=== PATIENT | female | born 1945 | race African-American/Black ===

== ENCOUNTER 2020-01-09 08:46 | Day surgery (SDC) | payer MEDICARE ==
[2020-01-09 09:38] LABS: ABSOLUTE BASOPHILS # (AUTO) 0.1 10^3/uL (0.0-0.2); ABSOLUTE EOSINOPHILS # (AUTO) 0.3 10^3/uL (0.0-0.6); ABSOLUTE LYMPHOCYTES (AUTO) 1.2 10^3/uL (0.5-4.7); ABSOLUTE MONOCYTES (AUTO) 0.4 10^3/uL (0.1-1.4); ABSOLUTE NEUT (AUTO) 4.9 10^3/uL (1.7-8.2); BASOPHILS % (AUTO) 0.9 % (0-2); EOSINOPHILS % (AUTO) 4.1 % (0-6); HEMATOCRIT 34.1 % (36.0-47.0); HEMOGLOBIN 11.7 g/dL (12.0-15.5); LYMPHOCYTES % (AUTO) 17.9 % (13-45); MEAN CORPUSCULAR HEMOGLOBIN 32.7 pg (27.0-33.4); MEAN CORPUSCULAR HGB CONC 34.3 g/dL (32.0-36.0); MEAN CORPUSCULAR VOLUME 95 fl (80-97); MONOCYTES % (AUTO) 6.3 % (3-13); PLATELET COUNT 161 10^3/uL (150-450); RED BLOOD COUNT 3.57 10^6/uL (3.72-5.28); SEGMENTED NEUTROPHILS % (AUTO) 70.8 % (42-78); TOTAL CELLS COUNTED % (AUTO) 100 %; WHITE BLOOD COUNT 6.9 10^3/uL (4.0-10.5)
[2020-01-09] MEDS ORDERED: MIDAZOLAM 2 MG/2 ML INJ ONE (09:54)
[2020-01-09] MEDS ORDERED: BACITRACIN INJ 50,000 UNIT VIAL ONE (09:55)
[2020-01-09] MEDS ORDERED: FENTANYL CITRATE INJ/PF 100 MCG/2 ML AMPUL ONE (09:55)
[2020-01-09] MEDS ORDERED: CEFAZOLIN INJ 1 GM VIAL ONE (09:55)
[2020-01-09] MEDS ORDERED: LIDOCAINE 0.5% INJ-PF (5 MG/ML) 50 ML SDV ONE ×2 (10:20→11:13)
[2020-01-09 10:22] LABS: ANION GAP 10 (5-19); BLOOD UREA NITROGEN 58 mg/dL (7-20); CALCIUM 9.5 mg/dL (8.4-10.2); CARBON DIOXIDE 25 mmol/L (22-30); CHLORIDE 107 mmol/L (98-107); GLUCOSE 129 mg/dL (75-110); POTASSIUM 4.7 mmol/L (3.6-5.0)
--- NOTE | 2020-01-09 11:51 | Discharge Summary ---
Discharge Summary (SDC) - Discharge Final Diagnosis: 1. Malfunctioning PermCath catheter. 2. End-stage renal disease on hemodialysis. 3. Diabetes mellitus type 2. 4. Hypertension. Date of Surgery: 01/09/20 Discharge Date: 01/09/20 Condition: Good Treatment or Instructions: Discharge home [after recovery per ASU criteria]. Diet , [renal], diabetic, as tolerated, when fully awake advance as tolerated. Activities within moderation encouraged. Follow up in my office by appointment in about [2 weeks. Call for appointment. Leave wounds [covered], [keep clean and dry, until on hemodialysis protocol. Meds per med rec. May shower [in 48 hrs], [try to keep operated area as dry as possible]. Referrals: CHERYL ACOSTA MD [Primary Care Provider] - Discharge Diet: Other (Comments) - Renal, diabetic. Respiratory Treatments at Home: Deep Breathing/Coughing Discharge Activity: Activity As Tolerated Report the Following to Your Physician Immediately: Shortness of Breath
--- NOTE | 2020-01-09 12:09 | RADIOLOGY REPORT (SQ) ---
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 FLUOROSCOPY TIME: 1.3 minutes. 49 images saved to PACS. TECHNIQUE: Intra-operative images acquired during surgical procedure to evaluate progress. NUMBER OF IMAGES: 49 images. LIMITATIONS: None. FINDINGS: Images of the chest acquired during the procedure. IMPRESSION: IMAGE(S) OBTAINED DURING PROCEDURE. COMMENT: Quality ID 145: Final reports for procedures using fluoroscopy that document radiation exp osure indices, or exposure time and number of fluorographic images (if radiation exposure indices are not available) Please consult full operative report of the attending physician for description of the procedure. TECHNICAL DOCUMENTATION: JOB ID: [id number] 2010 [employer]- All Rights Reserved Reading location - IP/workstation name: [email or web address]
--- NOTE | 2020-01-09 12:09 | RADIOLOGY REPORT (SQ) ---
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 FLUOROSCOPY TIME: 1.3 minutes. 49 images saved to PACS. TECHNIQUE: Intra-operative images acquired during surgical procedure to evaluate progress. NUMBER OF IMAGES: 49 images. LIMITATIONS: None. FINDINGS: Images of the chest acquired during the procedure. IMPRESSION: IMAGE(S) OBTAINED DURING PROCEDURE. COMMENT: Quality ID 145: Final reports for procedures using fluoroscopy that document radiation exp osure indices, or exposure time and number of fluorographic images (if radiation exposure indices are not available) Please consult full operative report of the attending physician for description of the procedure. TECHNICAL DOCUMENTATION: JOB ID: [id number] 2010 [employer]- All Rights Reserved Reading location - IP/workstation name: [email or web address]
--- NOTE | 2020-01-09 12:09 | RADIOLOGY REPORT (SQ) ---
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 FLUOROSCOPY TIME: 1.3 minutes. 49 images saved to PACS. TECHNIQUE: Intra-operative images acquired during surgical procedure to evaluate progress. NUMBER OF IMAGES: 49 images. LIMITATIONS: None. FINDINGS: Images of the chest acquired during the procedure. IMPRESSION: IMAGE(S) OBTAINED DURING PROCEDURE. COMMENT: Quality ID 145: Final reports for procedures using fluoroscopy that document radiation exp osure indices, or exposure time and number of fluorographic images (if radiation exposure indices are not available) Please consult full operative report of the attending physician for description of the procedure. TECHNICAL DOCUMENTATION: JOB ID: [id number] 2010 [employer]- All Rights Reserved Reading location - IP/workstation name: [email or web address]
--- NOTE | 2020-01-09 12:09 | RADIOLOGY REPORT (SQ) ---
EXAM DESCRIPTION: TUNNELED CENTRAL LINE; REMOVAL CENTRAL TUNNELED LINE; GUIDANCE FLUOROSCOPIC; ANGIO PLASTY BRACHIOCEPHALIC COMPLETED DATE/TIME: 01/09/2020 11:36 am REASON FOR STUDY: Z45.2 APERMCATH EXCHANGE; Z45.2 PERMCATH EXCHANGE; FIBREAN SHEATH, ATTN TO PERM CA TH, PERM CATH EXCHANGE Z45.2 ENCOUNTER FOR ADJUSTMENT AND MANAGEMENT OF VAD Z79.899 OTHER TUNNELLER (CURRENT) DRUG THERAPY COMPARISON: None. FLUOROSCOPY TIME: 1.3 minutes. 49 images saved to PACS. TECHNIQUE: Intra-operative images acquired during surgical procedure to evaluate progress. NUMBER OF IMAGES: 49 images. LIMITATIONS: None. FINDINGS: Images of the chest acquired during the procedure. IMPRESSION: IMAGE(S) OBTAINED DURING PROCEDURE. COMMENT: Quality ID 145: Final reports for procedures using fluoroscopy that document radiation exp osure indices, or exposure time and number of fluorographic images (if radiation exposure indices are not available) Please consult full operative report of the attending physician for description of the procedure. TECHNICAL DOCUMENTATION: JOB ID: [id number] 2010 [employer]- All Rights Reserved Reading location - IP/workstation name: [email or web address]
[2020-01-09 13:21] VITALS: BP 162/62
--- NOTE | 2020-01-09 13:53 | Operative Report ---
Operative Report DATE OF SURGERY: 01/09/20 PREOPERATIVE DIAGNOSIS: 1. Malfunctioning PermCath catheter. 2. End-stage re nal disease on hemodialysis. 3. Diabetes mellitus type 2. 4. Hypertension. POSTOPERATIVE DIAGNOSIS: 1. Malfunctioning PermCath catheter. 2. End-stage renal disease on hemodialysis. 3. Diabetes mellitus type 2. 4. Central vein fibrin sheath. 4. Hypertension. OPERATION: 1. Superior vena cava angiogram. 2. Angioplasty in superior vena cava. 3. Insertion of new PermCath catheter of the site of old PermCath catheter access in the right internal jugular vein. 4. Angiogram and interpretation. 5. Removal of old PermCath catheter. SURGEON: SACHA ORDONEZ CLEAN ROOM TECHNICIAN: None. ANESTHESIA: Moderate Sedation TISSUE REMOVED OR ALTERED: Not applicable. COMPLICATIONS: None. ESTIMATED BLOOD LOSS: 5 mL. INTRAOPERATIVE FINDINGS: Also will follow up with permacatheter based on the right internal jugular vein. Superior vena cava angiogram demonstrated a well- defined fibrin sheath. This seems to be the cause of the malfunction of the catheter. This was substantiated by the inability to withdraw through the sheath in the superior vena cava. After angioplasty of the fibrin sheath there was easy withdrawal of blood through the angiography sheath. Satisfactory position of the new permacatheter with the tip well down in the right atrial pool. The right atrial atrium is somewhat on the small size in this patient. Easy egress of blood and ingress of heparinized solution. Postprocedure chest x-ray shows hardware in good position. PROCEDURE: After obtaining informed consent, the patient was taken to the [Neurological Surgery Teacher] and p ositioned supine. The [right neck] and chest were prepared with chlorhexidine and draped out with sterile linen. After the " universal timeout", in which it was verified that the patient continued to receive antibiotic, the procedure commenced. Access into the [right internal jugular] vein was obtained by inserting local anesthesia in the old scar, opening with a scalpel. Dissection proceeded using a hemostat dissected of the catheter which was transected and the proximal portion replaced with guide wire. This was followed by introduction of a 0.035 guidewire the tip of which was placed down into the inferior vena cava . A 6 Croatian introducer was placed over the guidewire, the internal portion removed, aspiration attempted. An angiogram was not done with the findings as dictated. Based on this an 8 cm long 8 mm wide high-pressure angioplasty balloon was now placed over the guidewire and inflated for 30 seconds. A completion angiogram showed complete dissipation of the fibrin sheath in the superior vena cava. A 23 cm long permacatheter was now positioned over the chest and an exit site marked and locally anesthetized ,the catheter was placed between the 2 incisions. Proximally, the catheter was now positioned using a peel-away sheath, after dilation. Easy ingress of heparinized solution and egress of blood obtained through both ports. A completion angiogram was done by injecting contrast. The findings were as dictated. The neck incision was now closed using interrupted 3-0 PDS to the subcutaneous tissues, the catheter was anchored at the exit site using 3-0 PDS. A Biopatch device was now placed adjacent to the catheter. Dressings were applied and the procedure concluded. Local anesthesia was now infiltrated in the exit site and around the cuff of the old catheter. These were bluntly dissected away using a hemostat dressings applied and the procedure concluded. Exposure time: [1.3 minutes]. Exposure: 15.76 Meaghan vazquez. Contrast amount: [15 mL] of [id number] low osmolality. Copies of the dictated operative report for Dr. Sacha Hayes MD.concluded. Copies of the dictated operative report for Dr. Sacha Hayes MD.
--- NOTE | 2020-01-09 14:28 | PDOC H&P ---
General Chief Complaint: The patient is referred across for permacatheter exchange. Her existing (PermCath in place since August 2019 working well until this last weekend when the alarms on the machine went off. - Diagnosis (1) Malfunction of peripheral inserted central catheter Is this a Current Diagnosis?: Yes (2) Diabetes mellitus type 2 in nonobese Is this a Current Diagnosis?: Yes (3) End stage renal disease Is this a Current Diagnosis?: Yes (4) Hypertension Is this a Current Diagnosis?: Yes - Current Medications/Allergies Home Medications: Aspirin [Aspirin 81 mg Chewable Tablet] 81 mg PO DAILY 08/15/19 Diltiazem HCl [Diltiazem 24Hr ER (Cd)] 240 mg PO DAILY 08/15/19 Losartan/Hydrochlorothiazide [Hyzaar 100-25 Tablet] 1 each PO DAILY 08/15/19 Pravastatin Sodium [Pravachol] 40 mg PO DAILY 08/15/19 Allergies/Adverse Reactions: No Known Allergies Allergy (Unverified 08/14/19 18:50) Past Medical History Cardiac Medical History: Reports: Hypertension - meds Denies: Coronary Artery Disease, Myocardial Infarction Pulmonary Medical History: Denies: Asthma, Bronchitis, Chronic Obstructive Pulmonary Disease (COPD), Pneumonia Neurological Medical History: Denies: Seizures Endocrine Medical History: Reports: Diabetes Mellitus Type 1 Musculoskeltal Medical History: Reports: Arthritis - generalized Hematology: Reports: Anemia - hx of Past Surgical History Past Surgical History: Reports: Tubal Ligation Family History Family History: CVA, Hypertension Parental Family History Reviewed: No Children Family History Reviewed: No Sibling(s) Family History Reviewed.: No Social History Smoking Status: Never Smoker Frequency of Alcohol Use: None Drugs: None Physical Exam Vital Signs: Temp Pulse Resp BP Pulse Ox 97.2 F 74 18 162/62 H 98 01/09/20 12:50 01/09/20 12:50 01/09/20 12:50 01/09/20 12:50 01/09/20 12:50 Intake & Output 01/08/20 01/09/20 01/10/20 06:59 06:59 06:59 Weight 68.946 kg Additional comments: Constitutional: Well-developed well-nourished -[place] lady. No apparent acute distress. Eyes: Mucous membranes pink and moist, pupils equal and reactive to light. Conjunctiva normal. Cornea normal. ENT: Hearing grossly normal. External pinna normal to inspection. Teeth intact. Tongue normal to inspection. Cardiac: Heart sounds normal. Respiratory: breath sounds are present bilaterally, normal. Normal respiratory effort. Chest: Right-sided PermCath in place. Abdomen: Soft, non tender. Liver and spleen are not palpably enlarged. Bowel sounds are normal. Peritoneal dialysis cath in place. Surgical scars present. Psychiatric: Judgment, memory, insight seem normal. Mood is pleasant and appropriate. Neurovascular: No apparent tremors, gait almost normal. Sensation grossly intac t. Hearing grossly normal. Vison grossly intact. Impression/Plan Plan: In this patient with a malfunctioning permacatheter recommended is inserting a new catheter and removal of the old. Consideration for fibrin sheath to be sustained. The procedure, its risks, benefits, expected outcome and alternatives are familiar to the patient and she wishes to proceed.
== END 2020-01-09 12:50 | disposition home or self-care (01) ==
LOC: CCL 08:46
PROVIDERS: ATTEND Surgery
DX: Z45.2 Encounter for adjustment and management of vascular access device (principal); Z79.899 Other long term (current) drug therapy; E10.22 Type 1 diabetes mellitus with diabetic chronic kidney disease; I12.0 Hypertensive chronic kidney disease with stage 5 chronic kidney disease or end stage renal disease; N18.6 End stage renal disease; Z99.2 Dependence on renal dialysis; Z79.82 Long term (current) use of aspirin
CPT/HCPCS: 36415; 85025; 80048; 36589; 36907; 36558; 77001; C1725; C1713; C1894; C1769; J2250; J3490 ×2; J0690; J3010; J1644

== ENCOUNTER → 2020-10-17 | Outpatient (CLI) | payer MEDICARE ==
--- NOTE | 2020-10-17 13:09 | RADIOLOGY REPORT (SQ) ---
EXAM DESCRIPTION: KUB/ABDOMEN (SINGLE VIEW) IMAGES COMPLETED DATE/TIME: 10/17/2020 12:28 pm REASON FOR STUDY: (T85.041A)MECH COMPL OF INTRAPERITONEAL DIALYSIS CATHETER, INIT ENCNTR T85.691A M ECH COMPL OF INTRAPERITONEAL DIALYSIS CATHETER, IN COMPARISON: None. NUMBER OF VIEWS: One view. TECHNIQUE: Supine radiographic image of the abdomen acquired. LIMITATIONS: None. FINDINGS: BOWEL GAS PATTERN: Normal bowel gas pattern. No dilated loops. CALCIFICATIONS: No suspicious calcifications. SOFT TISSUES: No gross mass or suggestion of organomegaly. HARDWARE: None in the abdomen. BONES: Intraperitoneal dialysis catheter is present. The catheter appears to be intact. There is no kink. OTHER: There may be some free air in the abdomen. IMPRESSION: No abnormality is seen in the dialysis catheter. There may be some free air in the abdo men, possibly having been introduced through the catheter. TECHNICAL DOCUMENTATION: JOB ID: [id number] 2010 [employer]- All Rights Reserved Reading location - IP/workstation name: [email or web address]
== END ==
LOC: RAD 12:10
PROVIDERS: ATTEND Internal Medicine Nephrology
DX: T85.691A Other mechanical complication of intraperitoneal dialysis catheter, initial encounter (principal); X58.XXXA Exposure to other specified factors, initial encounter
CPT/HCPCS: 74018

== ENCOUNTER 2020-11-02 09:51 | Day surgery (SDC) | payer MEDICARE ==
[~2020-11-02 09:51] MED LIST: ACETAMINOPHEN 325 MG TABLET PO PRN; DIPHENHYDRAMINE HCL 25 MG CAPSULE PO PRN
--- NOTE | 2020-11-02 10:40 | ER Document Report ---
ED Medical Screen (RME) - General Stated Complaint: ABNORMAL LAB RESULT Time Seen by Provider: 11/02/20 10:36 Primary Care Provider: CHERYL ACOSTA MD [Primary Care Provider] - Follow up as needed Information source: Patient Notes: Patient presents after being informed that she had a low hemoglobin. Patient had blood work drawn on 10/29/2020 and states that she was told today that her hemoglobin was 5.7. Patient denies any abnormal bleeding or bruising. Patient does complain of some generalized weakness and some mild shortness of breath. Patient denies any dizziness or chest pain. Patient does have a history of dialysis and typically dialyzes on Tuesdays, and Wednesday. Patient states she did not go to dialysis today due to concerns about her abnormal lab work. Patient also reports history of diabetes and CVA. I have greeted and performed a rapid initial assessment of this patient. A comprehensive ED assessment and evaluation of the patient, analysis of test results and completion of the medical decision making process will be conducted by additional ED providers. TRAVEL OUTSIDE OF THE [place] IN LAST 30 DAYS: No - Related Data Allergies/Adverse Reactions: No Known Allergies Allergy (Unverified 08/14/19 18:50) Past Medical History - Past Medical History Cardiac Medical History: Reports: Hx Hypertension - meds Denies: Hx Coronary Artery Disease, Hx Heart Attack Pulmonary Medical History: Denies: Hx Asthma, Hx Bronchitis, Hx COPD, Hx Pneumonia Neurological Medical History: Reports: Hx Cerebrovascular Accident - 2003 no residual. Denies: Hx Seizures Endocrine Medical History: Reports: Hx Diabetes Mellitus Type 1 Musculoskeltal Medical History: Reports Hx Arthritis - generalized Past Surgical History: Reports: Hx Tubal Ligation - Immunizations Hx Diphtheria, Pertussis, Tetanus Vaccination: Yes Physical Exam - Vital signs Vitals: Temp Pulse Resp BP Pulse Ox 98.1 F 52 L 16 116/83 100 11/02/20 09:59 11/02/20 09:59 11/02/20 09:59 11/02/20 09:59 11/02/20 09:59 - General General appearance: Alert - Respiratory Respiratory status: No respiratory distress - Skin Skin Temperature: Warm Skin Moisture: Dry Skin Color: Pale Course - Vital Signs Vital signs: Temp Pulse Resp BP Pulse Ox 98.1 F 52 L 16 116/83 100 11/02/20 09:59 11/02/20 09:59 11/02/20 09:59 11/02/20 09:59 11/02/20 09:59 Doctor's Discharge - Discharge Referrals: CHERYL ACOSTA MD [Primary Care Provider] - Follow up as needed
--- NOTE | 2020-11-02 11:19 | RADIOLOGY REPORT (SQ) ---
EXAM DESCRIPTION: CHEST SINGLE VIEW<Procedure Description>CHEST SINGLE VIEW IMAGES COMPLETED DATE/TIME: 11/02/2020 11:01 am<Completed Time>11/02/2020 11:01 am REASON FOR STUDY: sob<Reason For Exam>sob <ADM DX> COMPARISON: 08/23/2019 NUMBER OF VIEWS: One. TECHNIQUE: Single frontal radiographic view of the chest acquired. RADIATION DOSE: <RADIATION DOSE> LIMITATIONS: None. FINDINGS: LUNGS AND PLEURA: No pneumothorax. Minimal linear scarring -subsegmental atelectasis the left lung base. No consolidation or pleural effusion. MEDIASTINUM AND HILAR STRUCTURES: Stable. HEART AND VASCULAR STRUCTURES: Stable. BONES: No acute findings. HARDWARE: Left tunneled IJ central venous catheter. OTHER: No other significant findings. IMPRESSION: NO ACUTE FINDINGS. TECHNICAL DOCUMENTATION: JOB ID: [id number]<Job ID>[id number] 2010 [employer]- All Rights Reserved Reading location - IP/workstation name: [email or web address]
[2020-11-02] MEDS ORDERED: DIPHENHYDRAMINE HCL 25 MG CAPSULE PO PRN (13:22)
[2020-11-02] MEDS ORDERED: ACETAMINOPHEN 325 MG TABLET PO PRN (13:22)
[2020-11-02] MEDS ORDERED: FUROSEMIDE INJ/PF 40 MG/4 ML SDV IV PRN (14:28)
[2020-11-02] MEDS: INSULIN LISPRO 100 UNIT/ML 3 ML VIAL SUBCUT SCH ×2 (16:18→21:49)
[2020-11-02 16:19] LABS: ABSOLUTE BASOPHILS # (AUTO) 0.1 10^3/uL (0.0-0.2); ABSOLUTE EOSINOPHILS # (AUTO) 0.1 10^3/uL (0.0-0.6); ABSOLUTE MONOCYTES (AUTO) 0.6 10^3/uL (0.1-1.4); ABSOLUTE NEUT (AUTO) 8.6 10^3/uL (1.7-8.2); BASOPHILS % (AUTO) 0.8 % (0-2); EOSINOPHILS % (AUTO) 1.2 % (0-6); HEMATOCRIT 16.9 % (36.0-47.0); LYMPHOCYTES % (AUTO) 9.6 % (13-45); MEAN CORPUSCULAR HEMOGLOBIN 29.3 pg (27.0-33.4); MEAN CORPUSCULAR HGB CONC 32.5 g/dL (32.0-36.0); MEAN CORPUSCULAR VOLUME 90 fl (80-97); PLATELET COUNT 250 10^3/uL (150-450); RED BLOOD COUNT 1.88 10^6/uL (3.72-5.28); SEGMENTED NEUTROPHILS % (AUTO) 82.4 % (42-78); TOTAL CELLS COUNTED % (AUTO) 100 %; WHITE BLOOD COUNT 10.4 10^3/uL (4.0-10.5)
[2020-11-02 16:21] LABS: HEMOGLOBIN 5.5 g/dL (12.0-15.5)
[2020-11-02 16:32] LABS: INTERNATIONAL RATION (INR) 1.21; PROTHROMBIN TIME 15.5 SEC (11.4-15.4)
[2020-11-02 16:33] LABS: PARTIAL THROMBOPLASTIN TIME 26.6 SEC (23.5-35.8)
[2020-11-02 16:34] LABS: ALKALINE PHOSPHATASE 90 U/L (38-126); ANION GAP 10 (5-19); ASPARTATE AMINO TRANSFERASE 27 U/L (14-36); BILIRUBIN,DIRECT 0.4 mg/dL (0.0-0.4); BILIRUBIN,TOTAL 0.6 mg/dL (0.2-1.3); BLOOD UREA NITROGEN 33 mg/dL (7-20); CARBON DIOXIDE 30 mmol/L (22-30); CHLORIDE 102 mmol/L (98-107); GLUCOSE 172 mg/dL (75-110); TOTAL PROTEIN 6.4 g/dL (6.3-8.2)
--- NOTE | 2020-11-02 17:21 | EKG REPORT ---
SEVERITY:- ABNORMAL ECG - SINUS RHYTHM PROBABLE LVH WITH SECONDARY REPOL ABNRM : Confirmed by: Deb Steinberg MD 02-Nov-2020 17:19:59
[2020-11-02] MEDS ORDERED: HEPARIN SOD (PORCINE) 1,000 UNIT/ML 10 ML VIAL IV PRN (21:10)
[2020-11-02] MEDS: OMEGA-3 ACID ETHYL ESTERS 1 GM CAPSULE PO SCH (21:48)
[2020-11-02] MEDS ORDERED: POTASSIUM CHLORIDE 10 MEQ TABLET.ER PO SCH (22:00)
[2020-11-02] MEDS ORDERED: ATORVASTATIN CALCIUM 10 MG TABLET PO SCH (22:00)
[2020-11-02] MEDS: DILTIAZEM HCL 120 MG CAP.SR.24H PO SCH (22:02)
[2020-11-02] MEDS: CLONIDINE HCL 0.1 MG TABLET PO SCH (22:03)
[2020-11-02] MEDS: NORMAL SALINE 250 ML IV PRN (23:39)
[2020-11-03] MEDS: NORMAL SALINE 250 ML IV PRN ×2 (03:10→07:10)
[2020-11-03] MEDS ORDERED: FUROSEMIDE INJ/PF 40 MG/4 ML SDV IV PRN (05:39)
[2020-11-03] MEDS ORDERED: HEPARIN SOD (PORCINE) 1,000 UNIT/ML 10 ML VIAL IV PRN (05:40)
[2020-11-03] MEDS ORDERED: LOSARTAN POTASSIUM 25 MG TABLET PO SCH (08:00)
[2020-11-03] MEDS ORDERED: ASPIRIN 81 MG TABLET, CHEWABLE PO SCH (08:00)
[2020-11-03] MEDS: INSULIN LISPRO 100 UNIT/ML 3 ML VIAL SUBCUT SCH (08:54)
[2020-11-03] MEDS: OMEGA-3 ACID ETHYL ESTERS 1 GM CAPSULE PO SCH (09:11)
[2020-11-03] MEDS: DILTIAZEM HCL 120 MG CAP.SR.24H PO SCH (09:11)
[2020-11-03] MEDS: CLONIDINE HCL 0.1 MG TABLET PO SCH (09:11)
[2020-11-03 11:28] VITALS: BP 170/65
== END 2020-11-03 12:50 | disposition home or self-care (01) ==
LOC: ER 09:51 → II 11:55 → UNDOADMIN 12:07 → 2N 12:07 → UNDODISIN 11-03 12:50 → II 11-03 12:50
PROVIDERS: ATTEND Internal Medicine Nephrology
DX: N18.6 End stage renal disease (principal); D63.1 Anemia in chronic kidney disease; Z79.899 Other long term (current) drug therapy
CPT/HCPCS: 93005; 86900; 86901; 36415; 36430; 86850; 82962 ×2; 83735; 85025; 85610; 85730; 80053; 86920; 71045; 93010; P9016 ×2; A9270 ×14; J1940; J1644; J7050 ×2; J1815

== ENCOUNTER 2020-11-09 22:05 | Emergency (ER) | payer MEDICARE ==
[2020-11-09] MEDS ORDERED: METOCLOPRAMIDE HCL INJ/PF 10 MG/2 ML SDV IV ONE (23:26)
--- NOTE | 2020-11-09 23:26 | ER Document Report ---
ED Medical Screen (RME) - General Chief Complaint: Vomiting Stated Complaint: VOMITING BILE Time Seen by Provider: 11/09/20 23:13 Primary Care Provider: CHERYL ACOSTA MD [Primary Care Provider] - Follow up as needed Mode of Arrival: Ambulatory Information source: Patient Notes: HPI; 75-year-old female end-stage renal disease on dialysis brought to the emergency room by her daughter complaining of vomiting and generalized abdominal pain which she describes as sharp and crampy, since yesterday. States she is now vomiting up bile they have been giving her p.o. Zofran without relief. Also noticed that her left leg has been having uncontrolled twitching that started this evening around 9 PM. Patient was seen here last week for anemia and was given a blood transfusion. Patient then went on Wednesday to have her dialysis catheter removed had not had any complications until yesterday. No fevers. No COVID-19 exposure. PE: Alert and oriented x3. Lungs: Diminished in the bases without rales, rhonchi, wheezes. Heart: Tachycardic without murmurs, rubs, gallops. I have greeted and performed a rapid initial assessment of this patient. A comprehensive ED assessment and evaluation of the patient, analysis of test results and completion of the medical decision making process will be conducted by additional ED providers. I have specifically instructed the patient or family members with the patient to immediately return to any nursing staff should anything change in the patient's condition or with their chief complaint. TRAVEL OUTSIDE OF THE [place] IN LAST 30 DAYS: No - Related Data Allergies/Adverse Reactions: No Known Allergies Allergy (Unverified 08/14/19 18:50) Past Medical History - Past Medical History Cardiac Medical History: Reports: Hx Hypertension - meds Denies: Hx Coronary Artery Disease, Hx Heart Attack Pulmonary Medical History: Denies: Hx Asthma, Hx Bronchitis, Hx COPD, Hx Pneumonia Neurological Medical History: Reports: Hx Cerebrovascular Accident - 2003 no residual. Denies: Hx Seizures Endocrine Medical History: Reports: Hx Diabetes Mellitus Type 1 Musculoskeltal Medical History: Reports Hx Arthritis - generalized Past Surgical History: Reports: Hx Tubal Ligation - Immunizations Hx Diphtheria, Pertussis, Tetanus Vaccination: Yes Physical Exam - Vital signs Vitals: Temp Pulse Resp BP Pulse Ox 97.5 F 117 H 22 H 176/98 H 99 11/09/20 22:20 11/09/20 22:20 11/09/20 22:20 11/09/20 22:20 11/09/20 22:20 Course - Vital Signs Vital signs: Temp Pulse Resp BP Pulse Ox 97.5 F 117 H 22 H 176/98 H 99 11/09/20 22:20 11/09/20 22:20 11/09/20 22:20 11/09/20 22:20 11/09/20 22:20 Doctor's Discharge - Discharge Referrals: CHERYL ACOSTA MD [Primary Care Provider] - Follow up as needed
[2020-11-10] MEDS ORDERED: METOCLOPRAMIDE HCL INJ/PF 10 MG/2 ML SDV IV ONE (03:45)
[2020-11-10 04:05] LABS: HEMATOCRIT 34.3 % (36.0-47.0); HEMOGLOBIN 11.1 g/dL (12.0-15.5); MEAN CORPUSCULAR HEMOGLOBIN 28.5 pg (27.0-33.4); MEAN CORPUSCULAR HGB CONC 32.3 g/dL (32.0-36.0); MEAN CORPUSCULAR VOLUME 88 fl (80-97); PLATELET COUNT 236 10^3/uL (150-450); RED BLOOD COUNT 3.89 10^6/uL (3.72-5.28)
[2020-11-10 04:23] LABS: ALBUMIN 3.3 g/dL (3.5-5.0); ALKALINE PHOSPHATASE 96 U/L (38-126); AMYLASE 55 U/L (30-110); ASPARTATE AMINO TRANSFERASE 26 U/L (14-36); BILIRUBIN,DIRECT 0.5 mg/dL (0.0-0.4); BILIRUBIN,TOTAL 0.8 mg/dL (0.2-1.3); BLOOD UREA NITROGEN 44 mg/dL (7-20); CALCIUM 9.4 mg/dL (8.4-10.2); CHLORIDE 101 mmol/L (98-107); GLUCOSE 389 mg/dL (75-110); POTASSIUM 4.5 mmol/L (3.6-5.0); TOTAL PROTEIN 6.8 g/dL (6.3-8.2)
[2020-11-10] MEDS ORDERED: METRONIDAZOLE 500 MG/NS RTU 500 MG/100 ML RTUPB IV ONE ×2 (04:26→09:30)
[2020-11-10] MEDS ORDERED: CIPROFLOXACIN 400 MG/D5W RTU 400 MG/200 ML RTUPB IV ONE (04:26)
[2020-11-10 04:28] LABS: CARBON DIOXIDE 21 mmol/L (22-30)
--- NOTE | 2020-11-10 04:28 | ER Document Report ---
ED GI/ - General Mode of Arrival: Ambulatory TRAVEL OUTSIDE OF THE [place] IN LAST 30 DAYS: No - Related Data Home Medications: Aspirin. Pravastatin sodium. Losartan/hydrochlorothiazide. Diltiazem. Docusate sodium. Lispro. NPH. Oxycodone/Acetaminophen. Potassium chloride. Clonidine <BRIAN HATCH - Last Filed: 11/10/20 08:19> <TRACY CARSON - Last Filed: 11/10/20 10:58> - General Chief Complaint: Vomiting Stated Complaint: VOMITING BILE Time Seen by Provider: 11/09/20 23:13 Primary Care Provider: CHERYL ACOSTA MD [Primary Care Provider] - Follow up as needed Notes: Patient is a 75-year-old female presents emergency department with a chief complaint of abdominal pain. Patient is a peritoneal dialysis patient. She ended up having her dialysis catheter evaluated in [place]. Daughter reports that the patient was having abdominal pain today. States that she has been vomiting bile since yesterday morning. (BRIAN HATCH) - Related Data Allergies/Adverse Reactions: cephalexin [From Keflex] Adverse Reaction (Verified 11/10/20 03:41) Past Medical History - General Information source: Patient - Social History Smoking Status: Never Smoker Family History: CVA, Hypertension - Past Medical History Cardiac Medical History: Reports: Hx Hypertension - meds Denies: Hx Coronary Artery Disease, Hx Heart Attack Pulmonary Medical History: Denies: Hx Asthma, Hx Bronchitis, Hx COPD, Hx Pneumonia Neurological Medical History: Reports: Hx Cerebrovascular Accident - 2004 no residual. Denies: Hx Seizures Endocrine Medical History: Reports: Hx Diabetes Mellitus Type 1 Musculoskeletal Medical History: Reports Hx Arthritis - generalized Past Surgical History: Reports: Hx Tubal Ligation - Immunizations Hx Diphtheria, Pertussis, Tetanus Vaccination: Yes <BRIAN HATCH - Last Filed: 11/10/20 08:19> Review of Systems <BRIAN HATCH - Last Filed: 11/10/20 08:19> - Review of Systems Notes: REVIEW OF SYSTEMS: CONSTITUTIONAL : Denies recent illness. Denies recent unintentional weight loss. Denies fever, chills, or sweats. EENT: Denies eye, ear, throat, or mouth pain, discharge, or symptoms. Denies nasal or sinus congestion. CARDIOVASCULAR: Denies chest pain. RESPIRATORY: Denies shortness of breath, cough, congestion, difficulty breathing, or wheezing. GASTROINTESTINAL: See HPI. GENITOURINARY: Denies difficulty urinating, burning, blood in urine, urgency or frequency. MUSCULOSKELETAL: Denies neck and back pain. Denies joint pain or swelling. SKIN: Denies rash, itchiness, or lesions HEMATOLOGIC : Denies easy bruising or bleeding. LYMPHATIC: Denies swollen, painful, enlarged glands. NEUROLOGICAL: Denies no numbness or tingling denies weakness. Denies headache. Denies altered mental status. Denies alteration in speech. PSYCHIATRIC: Denies stress, anxiety, alteration in sleep patterns, or depression. All other systems reviewed and negative. (BRIAN HATCH) Physical Exam <BRIAN HATCH - Last Filed: 11/10/20 08:19> - Vital signs Vitals: Temp Pulse Resp BP Pulse Ox 97.5 F 117 H 22 H 176/98 H 99 11/09/20 22:20 11/09/20 22:20 11/09/20 22:20 11/09/20 22:20 11/09/20 22:20 - Notes Notes: PHYSICAL EXAMINATION: GENERAL: Appears well, healthy, well-nourished, no acute distress. HEAD: Normocephalic, atraumatic. EYES: PERRL, conjunctiva normal, all extraocular movements intact, sclera nonicteric ENT: Moist mucous membranes. NECK: Supple, no noticeable swelling, redness, rash. Normal range of motion. LUNGS: Equal breath sounds bilaterally and clear to auscultation. No wheezes rales or rhonchi. CARDIOVASCULAR: S1-S2, regular rate, regular rhythm. Radial pulses 2+, normal. ABDOMEN: Normoactive bowel sounds. Soft, nontender, no guarding, no rebound tenderness, and no masses palpated. EXTREMITIES: Normal strength and range of motion, no pitting or edema. No cyanosis. NEUROLOGICAL: Moves all extremities upon command. Strength 5/5 in all extremities. PSYCH: Normal mood, normal affect. SKIN: Warm, dry. No rash, lesions, ulcerations noted. Normal skin turgor. (BRIAN HATCH) Course - Laboratory Results Result Diagrams: 11/10/20 03:48 11/10/20 03:48 <BRIAN HATCH - Last Filed: 11/10/20 08:19> - Laboratory Results Result Diagrams: 11/10/20 03:48 11/10/20 03:48 Critical Laboratory Results Reviewed: Yes Attending or Supervising Physician who Reviewed Labs: TRACY CARSON E - Radiology Results Critical Radiology Results Reviewed: No Critical Results <TRACY CARSON - Last Filed: 11/10/20 10:58> - Re-evaluation Re-evalutation: 11/10/20 05:21 Patient staff was unable to withdraw peritoneal fluid. I was able to get some fluid off. This was done in a sterile fashion. We will send peritoneal fluid for culture and cell count. 11/10/20 06:56 Patient had a seizure. Dr. Carson at bedside. We will start the patient on Nicardipine gtt. I called [facility]. They are not excepting any admissions at this time. 11/10/20 06:59 I called [facility] and they are currently at capacity also and are not accepting patients for transfer. 11/10/20 07:04 I called [facility] and the patient will be placed on a wait list. 11/10/20 08:[address] Ibarra, the hospitalist at [facility]. He will accept the patient to his service. (BRIAN HATCH) - Vital Signs Vital signs: Temp Pulse Resp BP Pulse Ox 97.6 F 117 H 17 162/83 H 100 11/10/20 06:01 11/09/20 22:20 11/10/20 09:01 11/10/20 09:01 11/10/20 09:01 - Laboratory Results Laboratory Results Interpreted: 11/10/20 11/10/20 11/10/20 03:48 03:48 07:03 WBC 13.0 H Hgb 11.1 L Hct 34.3 L RDW 17.0 H Seg Neuts % (Manual) 88 H Lymphocytes % (Manual) 6 L Abs Neuts (Manual) 11.4 H ABG pH 7.26 L ABG pO2 51.5 L ABG HCO3 17.6 L ABG Total CO2 18.9 L ABG O2 Saturation 81.2 L Sodium 146.8 H Carbon Dioxide 21 L Anion Gap 25 H BUN 44 H Creatinine 6.61 H Est GFR ( Amer) 7 L Est GFR (MDRD) Non-Af 6 L Glucose 389 H Direct Bilirubin 0.5 H Albumin 3.3 L - Radiology Results Radiology Results Interpreted: 11/10/20 10:[address] 11/10/20 06:59 IMPRESSION: Mild microvascular and age-related involutional changes. Inc idental finding sphenoid sinusitis. EVIDENCE OF ACUTE STROKE: NO. Chest X-Ray 11/10/20 07:01 IMPRESSION: The no evidence of acute cardiopulmonary abnormality. (TRACY CARSON) Procedures - Central Line Right Femoral Time completed: 10:50 Consent obtained: Yes Central line pre-insertion: Sterile PPE donned, Betadine prep applied, Sterile drapes applied Central line lumen type: Triple Anesthetic type: 1% Lidocaine mL's of anesthesia: 10 Ultrasound guided: Yes Line secured with sutures: Yes Central line post-insertion: Blood return from lumens, Biopatch applied, Sutured, Sterile dressing applied Number of attempts: 1 Complications: No <TRACY CARSON - Last Filed: 11/10/20 10:58> Critical Care Note - Critical Care Note Total time excluding time spent on procedures (mins): 35 <BRIAN HATCH - Last Filed: 11/10/20 08:19> - Critical Care Note Comments: Critical care time spent obtaining history from patient or surrogate, discussio ns with consultants, development of treatment plan with patient or surrogate, evaluation of patient's response to treatment, examination of patient, ordering and performing treatments and interventions, ordering and review of laboratory studies, re-evaluation of patient's condition, ordering and review of radiographic studies and review of old charts (BRIAN HATCH) Discharge - Discharge Admitting Provider: Dr. Ibarra <BRIAN HATCH - Last Filed: 11/10/20 08:19> <TRACY CARSON - Last Filed: 11/10/20 10:58> - Discharge Clinical Impression: Bacterial peritonitis, Seizure Condition: Fair Disposition: [facility] Referrals: CHERYL ACOSTA MD [Primary Care Provider] - Follow up as needed
[2020-11-10 04:30] LABS: ANION GAP 25 (5-19)
[2020-11-10 04:53] LABS: ABSOLUTE LYMPHOCYTES# (MANUAL) 0.8 10^3/uL (0.5-4.7); ABSOLUTE MONOCYTES # (MANUAL) 0.8 10^3/uL (0.1-1.4); BASOPHILS % (MANUAL) 0 % (0-2); EOSINOPHILS % (MANUAL) 0 % (0-6); LYMPHOCYTES % (MANUAL) 6 % (13-45); MONOCYTES % (MANUAL) 6 % (3-13); SEGMENTED NEUTROPHILS % (MAN) 88 % (42-78); TOTAL CELLS COUNTED 100
[2020-11-10 04:54] LABS: ANISOCYTOSIS 1+; OVALOCYTES 1+; TEAR DROP CELLS SLIGHT; TOXIC GRANULATION 1+; TOXIC VACUOLATION PRESENT
[2020-11-10 04:55] LABS: PLATELET COMMENT ADEQUATE
[2020-11-10] MEDS ORDERED: NORMAL SALINE 1000 ML 1,000 ML IV ONE (05:25)
[2020-11-10 06:03] LABS: FLUID SOURCE ASCITES; FLUID TYPE PERITONEAL
[2020-11-10 06:04] LABS: FLUID COLOR DARK YELLOW
[2020-11-10 06:05] LABS: FLUID APPEARANCE CLOUDY
[2020-11-10 06:06] LABS: FLUID VISCOSITY HIGHLY VISCOUS
[2020-11-10] MEDS ORDERED: LORAZEPAM INJ 2 MG/1 ML VIAL IV ONE (06:47)
[2020-11-10] MEDS ORDERED: NICARDIPINE HCL RTU, ISO-OS 20 MG/200 ML RTUINJ IV PRN (06:53)
[2020-11-10 07:11] LABS: ARTERIAL BLOOD BASE EXCESS -8.9 mmol/L; ARTERIAL BLOOD H2CO3 1.22 mmol/L (1.05-1.35); ARTERIAL BLOOD HCO3 17.6 mmol/L (20-24); ARTERIAL BLOOD O2 SATURATION 81.2 % (94-98); ARTERIAL BLOOD PCO2 40.4 mmHg (35-45); ARTERIAL BLOOD PH 7.26 (7.35-7.45); ARTERIAL BLOOD PO2 51.5 mmHg (80-100); ARTERIAL BLOOD TOTAL CO2 18.9 mmol/L (21-25)
[2020-11-10 07:25] LABS: ARTERIAL BLOOD FIO2 4L
[2020-11-10] MEDS ORDERED: LEVETIRACETAM 1000 MG/NACL-ISO 1,000 MG/100 ML RTUPB IV ONE (07:25)
[2020-11-10] MEDS ORDERED: VANCOMYCIN HCL INJ 1000 MG VIAL IV ONE (08:02)
[2020-11-10] MEDS ORDERED: PIPERACILLIN/TAZOBACTAM 3.375 GM VIAL IV ONE (08:07)
--- NOTE | 2020-11-10 08:11 | RADIOLOGY REPORT (SQ) ---
EXAM DESCRIPTION: CHEST SINGLE VIEW IMAGES COMPLETED DATE/TIME: 11/10/2020 7:15 am REASON FOR STUDY: Seizure COMPARISON: 11/02/2020 EXAM PARAMETERS: NUMBER OF VIEWS: One view. TECHNIQUE: Single frontal radiographic view of the chest acquired. RADIATION DOSE: NA LIMITATIONS: None. FINDINGS: LUNGS AND PLEURA: Skin folds overlie the apical lungs. Low lung volumes results in bronch ovascular crowding. No focal consolidation, pleural effusion, or pneumothorax. MEDIASTINUM AND HILAR STRUCTURES: No masses. Contour normal. HEART AND VASCULAR STRUCTURES: Heart normal in size. Normal vasculature. BONES: No acute findings. HARDWARE: Dual-lumen catheter, stable. OTHER: No other significant finding. IMPRESSION: The no evidence of acute cardiopulmonary abnormality. TECHNICAL DOCUMENTATION: JOB ID: [id number] 2010 [employer]- All Rights Reserved Reading location - IP/workstation name: [email or web address]
--- NOTE | 2020-11-10 08:35 | RADIOLOGY REPORT (SQ) ---
EXAM DESCRIPTION: CT HEAD WITHOUT IMAGES COMPLETED DATE/TIME: 11/10/2020 8:20 am REASON FOR STUDY: new onset seizure COMPARISON: 08/14/2019 TECHNIQUE: Axial images acquired through the brain without intravenous contrast. Images reviewed wi th bone, brain and subdural windows. Additional sagittal and coronal reconstructions were generated. Images stored on PACS. All CT scanners at this facility use dose modulation, iterative reconstruction, and/or weight based d osing when appropriate to reduce radiation dose to as low as reasonably achievable (ALARA). [facility]: Dose Right [facility]: CareDose [facility]: Dose Right [facility]: Teradose 4D [facility]: Smart [place] [employer] RADIATION DOSE: CT Rad equipment meets quality standard of care and radiation dose reduction techniq ues were employed. CTDIvol: 48.9 mGy. DLP: 935 mGy-cm. mGy. LIMITATIONS: None. FINDINGS: VENTRICLES: Prominent. CEREBRUM: No masses. No hemorrhage. No midline shift. Areas of low density in the white matter mos t likely due to chronic micro-vascular ischemic change. No evidence for acute infarction. CEREBELLUM: No masses. No hemorrhage. No alteration of density. No evidence for acute infarction. EXTRAAXIAL SPACES: Mild age-related involutional change. No fluid collections. No masses. ORBITS AND GLOBE: No intra- or extraconal masses. Normal contour of globe without masses. CALVARIUM: No fracture. PARANASAL SINUSES: Partial opacification of the right sphenoid compartment. The paranasal sinuses an d mastoid air cells are otherwise clear. SOFT TISSUES: No mass or hematoma. OTHER: No other significant finding. IMPRESSION: Mild microvascular and age-related involutional changes. Incidental finding sphenoid si nusitis. EVIDENCE OF ACUTE STROKE: NO. TECHNICAL DOCUMENTATION: JOB ID: [id number] Quality ID # [id number]: Final reports with documentation of one or more dose reduction techniques (e.g., Au tomated exposure control, adjustment of the mA and/or kV according to patient size, use of iterative reconstruction technique) 2010 [employer]- All Rights Reserved Reading location - IP/workstation name: [email or web address]
--- NOTE | 2020-11-10 11:02 | ER Document Report ---
Doctor's Note Notes: 11/10/20 10:58 This is a 75-year-old female I was asked to see along with nurse practitioner. The patient has a history of end-stage renal disease on dialysis. She is recently had a peritoneal dialysis catheter inserted through the outpatient center at [facility]. She has been hemodialyzing up to now and took her last dialysis 4 days ago. Daughter brought her in today because she is less responsive than previously and she has had some intermittent low-grade fever. I have reviewed the complete medical record from today and have obtained supplemental history from the daughter and examined patient at the bedside. When I entered the room the patient appeared to be having a focal seizure with eyes deviated to the right and some mild tonic-clonic movements. We gave a total of 4 mg of Ativan and seizure activity was terminated. We note this lady is not had seizures previously. She had Cipro infusing at the time IV. I asked him to take this down. We went ahead and loaded this lady with Keppra IV. Head CT was obtained and this showed microvascular changes only. Her blood pressure was very elevated during the seizure episode. This came down without further intervention however after she got IV Ativan and her pressure following termination of seizure was 130/85. She appears postictal. Patient had already had PD fluid testing and she clearly has a bacterial peritonitis. We have no renal coverage over the weekend. I have asked nurse practitioner to coordinate transfer this patient elsewhere and is my understanding she is now been accepted at [facility] in [facility]. The patient did not have satisfactory peripheral venous access. I placed a right triple-lumen femoral catheter for her prior to transport.
[2020-11-10 15:28] VITALS: BP 202/93
== END 2020-11-10 16:16 | disposition short-term general hospital (02) ==
LOC: ER 22:05
DX: K65.8 Other peritonitis (principal); B96.89 Other specified bacterial agents as the cause of diseases classified elsewhere; R56.9 Unspecified convulsions; R11.10 Vomiting, unspecified; E10.22 Type 1 diabetes mellitus with diabetic chronic kidney disease; I12.0 Hypertensive chronic kidney disease with stage 5 chronic kidney disease or end stage renal disease; N18.6 End stage renal disease; Z99.2 Dependence on renal dialysis; Z98.51 Tubal ligation status
CPT/HCPCS: 99285; 96361; 96375; 96365; 96366; 96367; 96368; 36415; 87040; 87205; 87070; 82962; 82150; 82803; 83690; 85025; 89050; 87075; 80053; 36556; J2765; J3490; J2060; J7030; J3370; J0744; J1953; J2543